=== PATIENT | male | born 1970 | race Caucasian/White ===

== ENCOUNTER 2024-07-31 13:19 | Outpatient (REF) | payer MEDICAID, SELFPAY ==
[2024-07-31 14:40] LABS: MANUAL DIFF FLAG NO
[2024-07-31 14:50] LABS: Basophils Absolute Auto 0.1 X10*3/uL (0.0-0.2); Basophils Percent Auto 0.9 % (0-2); Eosinophils Absolute Auto 0.3 X10*3/uL (0.0-0.4); Eosinophils Percent Auto 3.7 % (0-4); Hematocrit 48.5 % (42.0-52.0); Hemoglobin 17.1 g/dl (14.0-18.0); Imm Gran Abs Auto 0.02 X10*3/uL (0.00-0.03); Imm Gran Pct Auto 0.3 % (0.0-0.4); Lymphocytes Absolute Auto 1.4 X10*3/uL (1.2-4.9); Lymphocytes Percent Auto 20.2 % (20-40); Mean Corpuscular HGB Conc 35.3 g/dl (31.0-36.0); Mean Corpuscular Hemoglobin 30.1 pg (27.0-33.0); Mean Corpuscular Volume 85.4 fL (80.0-98.0); Mean Platelet Volume 11.5 fL (9.4-12.4); Monocytes Absolute Auto 0.6 X10*3/uL (0.1-1.2); Monocytes Percent Auto 8.2 % (2-11); Neutrophils Absolute Auto 4.7 x10*3/uL (2.0-8.3); Neutrophils Percent Auto 66.7 % (45-73); Platelet Count 214 X10*3/uL (160-400); Red Blood Count 5.68 X10*6/uL (4.60-5.80)
[2024-07-31 15:26] LABS: Creatinine Urine 129.37 mg/dL; Microalbum/Creatinine Ratio Ur 26.2 ug/mg cr (<30)
[2024-07-31 18:27] LABS: Alanine Aminotransferase 54 U/L (0-40); Alkaline Phosphatase 67 U/L (39-117); Anion Gap 17 (12-20); Aspartate Amino Transferase 35 U/L (5-37); Blood Urea Nitrogen 15 mg/dL (9-16); Calcium 10.1 mg/dL (8.4-10.2); Carbon Dioxide 20 mmol/L (22-29); Chloride 102 mmol/L (96-108); Cholesterol 146 mg/dL (<200); Estimated Glomerular Filt Rate > 60; Glucose Random 84 mg/dL (60-115); HDL Cholesterol 35 mg/dL (>40); LDL Cholesterol Calculated 71 mg/dL (<100); Potassium 3.9 mmol/L (3.3-5.1); Sodium 135 mmol/L (135-145); Total Protein 7.6 g/dL (6.5-8.0); Triglycerides 203 mg/dL (<150)
[2024-07-31 18:43] LABS: TSH reflex Free T4 3.54 uIU/mL (0.32-4.0)
[2024-08-01 11:09] LABS: ~HepC Num1 0.07 S/CO (0.00-0.79); ~Hepatitis C Antibody Nonreactive (Nonreactive)
== END 2024-07-31 13:20 | disposition home or self-care (01) ==
LOC: HO.CHCLDS 13:19
PROVIDERS: Visit Provider Internal Medicine
DX: E11.9 Type 2 diabetes mellitus without complications (principal); Z79.4 Long term (current) use of insulin; E78.00 Pure hypercholesterolemia, unspecified
CPT/HCPCS: 36415; 80053; 80061; 82043; 82570; 84443; 85025; 86803

== ENCOUNTER 2024-09-05 09:43 | Outpatient (REF) | payer OTHER, SELFPAY ==
--- NOTE | ~2024-09-05 | US_ITS ---
EXAMINATION: US ABDOMEN COMPLETE CLINICAL INFORMATION: Transaminitis. COMPARISON: Ultrasound abdomen 12/12/2019 and 08/30/2018. TECHNIQUE: Real-time imaging of the abdominal viscera. Technically limited study secondary to bowel gas and body habitus. FINDINGS: PANCREAS: The visualized portions of the pancreas are unremarkable but a large portion of the gland is obscured by bowel gas. ABDOMINAL AORTA: No aneurysm although the mid aorta is not seen, obscured by bowel gas. INFERIOR VENA CAVA: Visualized portions are normal. LIVER: The liver is enlarged measuring at least 22 cm in greatest length. The liver contour is normal. There is diffuse increased liver parenchymal echogenicity, consistent with hepatic steatosis. No focal hepatic lesion. There is no intrahepatic biliary duct dilatation seen. GALLBLADDER: Normal. The gallbladder is physiologically distended without evidence of stones, sludge, polyps, wall thickening or pericholecystic fluid. COMMON BILE DUCT: Normal in caliber measuring 0.5 cm in diameter. RIGHT KIDNEY: Normal. No hydronephrosis. No renal calculi or focal parenchymal lesions. The kidney measures 13.7 cm in maximum dimension. LEFT KIDNEY: No hydronephrosis. Again seen is an extrarenal pelvis versus a parapelvic benign cyst, in either case not a concerning finding. No follow up needed. No renal calculi or focal parenchymal lesions. The kidney measures 13.4 cm in maximum dimension. SPLEEN: The spleen is enlarged measuring 14.2 cm in maximum dimension. FREE FLUID: None. US/US abdomen complete IMPRESSION: Enlarged fatty liver with associated splenomegaly. Electronically signed by: Serge Cerrato MD 10/31/2024 01:40 PM [facility]
== END 2024-09-05 09:44 | disposition home or self-care (01) ==
LOC: HO.HMGCX 09:43
PROVIDERS: PCP Internal Medicine; Visit Provider Internal Medicine
DX: R74.01 Elevation of levels of liver transaminase levels (principal)
CPT/HCPCS: 76700

== ENCOUNTER 2025-04-08 13:29 | Outpatient (REF) | payer OTHER, SELFPAY ==
--- NOTE | ~2025-04-08 | US_ITS ---
EXAMINATION: US ABDOMEN COMPLETE WITH LIVER ELASTOGRAPHY HISTORY: Fatty liver w/ splenomegaly. TECHNIQUE: Real-time grayscale ultrasound imaging of the abdomen was performed and images were reviewed. COMPARISON: Comparison is made with the prior examination dated 09/05/2024. FINDINGS: Liver: The right lobe of the liver measures 20.1 cm in size. The left lobe of the liver is suboptimally visualized and difficult to measure. The liver demonstrates increased echotexture, consistent with steatosis. No focal mass or intrahepatic biliary ductal dilatation is identified. There is normal hepatopedal flow in the portal vein. Ultrasound elastography of the liver was performed with 10 separate measurements of the liver parenchyma with the patient in the supine position. Measurements were obtained approximately 2 cm below Roosevelt's capsule and perpendicular to the capsule. Images are of satisfactory quality. The median shear wave velocity is 1.91 m/s. The interquartile range/median (IQR/median) is 0.10. Gallbladder and biliary tree: The gallbladder is unremarkable, without evidence of calculi, wall thickening, or pericholecystic fluid. There is no sonographic Fuentes sign. The common bile duct is normal in caliber measuring 3 mm. Kidneys: The right kidney measures 13.7 cm in length. The left kidney measures 13.0 cm in length. The kidneys are unremarkable, without evidence of masses, hydronephrosis, or calculi. Pancreas: The pancreas is largely obscured by bowel gas. Spleen: The spleen is normal in size and contour, measuring 14.0 cm in length. Abdominal aorta and inferior vena cava: The visualized portions of the abdominal aorta and inferior vena cava are normal in caliber. There is no free fluid in the abdomen. US/US abdomen comp w elastography IMPRESSION: Hepatosplenomegaly and hepatic steatosis. The median shear wave velocity in the liver is 1.91 m/s, corresponding to a median liver stiffness of 11.5 kPa. The IQR/median value is 0.10. This is indicative of a quality data set. Findings are indicative of a high elastography value suggestive of compensated advanced chronic liver disease. REFERENCE: Society of Radiologists in Ultrasound Liver Stiffness Thresholds (2020): LIVER STIFFNESS THRESHOLDS: *Shear wave velocity less than 1.3 m/s (Liver Stiffness equal or less than 5 kPa): High probability of being normal. *Shear wave velocity less than 1.7 m/s (Liver Stiffness less than 9 kPa): In the absence of other known clinical signs, rules out compensated advanced chronic liver disease. *Shear wave velocity between 1.7-2.1 m/s (Liver Stiffness 9-13 kPa): Suggestive of compensated advanced chronic liver disease but need further test for confirmation. *Shear wave velocity between 2.1-2.4 m/s (Liver Stiffness 13-17 kPa): Rules in compensated advanced chronic liver disease. *Shear wave velocity greater than 2.4 m/s (Liver Stiffness over 17 kPa): Suggestive of clinically significant portal hypertension. QUALITY OF DATA SET: *IQR/Median value equal or less than 0.15 implies a quality data set. *IQR/Median value over 0.15 implies a poor quality data set. SIGNIFICANT CHANGE FROM PRIOR EXAM: Significant change if liver stiffness measurement is 10% or greater from prior exam. OTHER CONSIDERATIONS: The stage of liver fibrosis may be overestimated in the setting of acute hepatitis, liver inflammation, elevated liver function tests, hepatic vascular congestion, obstructive cholestasis, non-fasting state, and infiltrative diseases such as amyloidosis and lymphoma. In some patients with NAFLD, the liver stiffness thresholds for compensated advanced chronic liver disease may be lower. In causes other than viral hepatitis and NAFLD, liver stiffness thresholds are not well established. Electronically signed by: Hakan Hernandes MD 04/08/2025 02:37 PM EDT
--- OUTSIDE RECORDS SUMMARY | 2025-04-08 13:36 | XMS_ITS | Encounter Summary ---
Author Organization [employer] Address [address] [place] [address] 7 [place] [address] Care Team Providers Care Hospital Staff Pharmacist Name Role Phone Eli Roca MD Primary Care Provider Henrry Connor PharmD Unavailable Unavail able Encounter Details Date Type Department Care Team (Late Contact Info) Description 11/02/2024 Orders Only [facility] MED & PEDS [address] [place] [address] Eli Roca MD [address] [place] [address] Social History Tobacco Use Types Packs/Day Years Used Date Smoking Tobacco: Never Smokeless Tobacco: Never Depression Answer Date Recorded Patient Health Questionnaire-9 Score 0 07/10/2024 Patient Health Questionnaire-9 Score 0 07/10/2024 Last PHQ-9: Questionnaire Data Not on file 0 07/10/2024 Depression Answer Date Recorded Patient Health Questionnaire-2 Score 0 07/10/2024 Sex and Gender Information Value Date Recorded Sex Assigned at Male 09/25/2022 10:20 AM EDT Legal Sex Male 10:20 AM EDT Gender Identity Male 09/25/2022 10:20 AM EDT Sexual Orientation Straight 07/11/2024 4: 21 PM EDT documented as of this encounter Plan of Treatment Upcoming Encounters Date Type Department Care Team (Late Contact Info) Description 05/08/2025 3:15 PM EDT Office Visit [facility] MED & PEDS [address] [place] [address] Eli Roca MD [address] [place] [address] documented as of this encounter Goals Goal Patient Goal Type Associated Problems Recent Progress Patient-Stated? Author Blood Pressure < 140/90 Blood Pressure 126/80(2024 3:47 PM EDT) No Henrry Connor, PharmEduardo Hemoglobin A1c < 7 Result Component 7.3( 3:25 PM EST) No Henrry Connor PharmD documented as of this encounter Visit Diagnoses Not on filedocumented in this encounter Additional Health Concerns Assessment Noted Time PHQ-9 Depression Total Score: 0 07/10/20 24 2:52 PM EDT documented as of this encounter Care Teams Hospital Staff Pharmacist Relationship Specialty Start Date End Date Eli Roca MD 505 [place] [address] PCP - General Internal Medicine 12/25/13 Henrry Connor PharmD 505 [facility] [place] [address] Pharmacist Internal Medicine 05/04/23 documented as of this encounter
--- OUTSIDE RECORDS SUMMARY | 2025-04-08 13:36 | XMS_ITS | Clinical Summary ---
Author Organization [employer] Address [address] [place] [address] Care Team Providers Care Car And Yard Supervisor Name Role Phone Eli Roca MD Primary Care Provider Henrry Connor PharmEduardo Unavailable Unavail able Allergies No known active allergies Medications ibuprofen 400 MG tablet TAKE 1 TABLET BY MOUTH EVERY 6 HOURS NEEDED 2 Active Lancets (OneTouch Delica Plus [id number]) misc CHECK BLOOD SUGARS 4 TIMES A DAY DAY 2 Active FREESTYLE LITE test stripIndications: Type 2 diabetes mellitus without complication, with long-term current use of insulin ([facility]) USE TO TEST 4 TIMES A DAY 100 strip 3 4 Active Alcohol Swabs (Alcohol Prep) 70 % padsIndications:T ype 2 diabetes mellitus without complication, with long-term current use of insulin ([facility]) Use to check blood sugar/apply fatemeh up to TID 100 each 5 Active empagliflozin (Jardiance) 10 MGIndications:Typ e 2 diabetes mellitus with hyperglycemia, with long-term current use of insulin ([facility]) Take 1 tablet (10 mg) by mouth in the morning. 90 tablet 3 5 Active atorvastatin (Lipitor) 10 MG tabletIndications :Hypercholesterol emia Take 1 tablet (10 mg) by mouth in the morning. 90 tablet 3 5 Active insulin pen needle (B-D ULTRAFINE III SHORT PEN) 31G X 8 mm miscIndications:T ype 2 diabetes mellitus without complication, with long-term current use of insulin ([facility]) Use as instructed 120 each 5 Active Continuous Glucose Speedboat Driver (FreeStyle Fatemeh 2 Cranks) deviceIndications :Type 2 diabetes mellitus without complication, with long-term current use of insulin ([facility]) Use to check blood sugar at least every 8 hours 1 each 5 Active Continuous Glucose Sensor (FreeStyle Fatemeh 2 Sensor) miscIndications:T ype 2 diabetes mellitus without complication, with long-term current use of insulin ([facility]) Use to check blood sugar at least every 8 hours 2 each 5 Active empagliflozin (Jardiance) 25 MGIndications:Typ e 2 diabetes mellitus without complication, with long-term current use of insulin ([facility]) Take 1 tablet (25 mg) by mouth Once per day. 30 tablet 5 12/19/19 26 Active amLODIPine (Norvasc) 10 MG tabletIndications :Essential hypertension Take 1 tablet (10 mg) by mouth Once per day. 90 tablet 5 Active allopurinol (Zyloprim) 100 MG tablet Take 1 tablet (100 mg) by mouth Once per day. 90 tablet 5 Active insulin glargine (Lantus SoloStar) 100 UNIT/ML pen Inject 62 Units under the skin at bedtime. 15 mL 5 Active levothyroxine (Synthroid, Levoxyl) 50 MCG tablet Take 1 tablet (50 mcg) by mouth Once per day. 90 tablet 5 Active lisinopril 40 MG tablet Take 1 tablet (40 mg) by mouth Once per day. 90 tablet 5 Active metFORMIN (Glucophage) 1000 MG tablet Take 1 tablet (1,000 mg) by mouth 2 times daily. 180 tablet 5 Active Multiple Vitamin (One-Daily Multi-Vitamin) tablet Take 1 tablet by mouth 2 times daily. 180 tablet 5 Active glipiZIDE (Glucotrol) 5 MG tablet TAKE 0-1 TABLETS BY MOUTH BEFORE BREAKFAST AND 1 TO 3 TABLETS BEFORE SUPPER 450 tablet 5 Active Active Problems Problem Noted Date Diagnosed Date Varicocele 03/18/2018 Acquired hypothyroidism 02/19/2012 Diabetes mellitus 02/19/2012 Essential hypertension 02/19/2012 Pure hypercholesterolemia 02/19/2012 Tinea pedis 02/19/2012 Encounters Date Type Department Care Team Description 02/06/2025 Population Health Risk Score Community [facility] () Department [address] [phone] Provider, Population Health Generic 02/04/2025 4:00 PM EDT Office Visit [facility] MED & PEDS [address] [place] [address] Eli Roca MD Essential hypertension (Primary Dx); Type 2 diabetes mellitus without complication, with long-term current use of insulin (CMS/HCC); Acquired hypothyroidism; Fatty liver 02/04/2025 Travel 01/28/2025 Travel from Last 3 Months Immunizations Immunization Administration Dates Next Due Hep B, adult 01/21/2014,09/17/2013,08/20/2013 Influenza injectable quadriv alent IIV4 with preservative 09/20/2016,10/14/2015 Influenza, IIV3, injectable 08/11/2014 Influenza, Split (incl. nile fied surface antigen) 09/17/2013,12/06/2012 Pneumococcal Polysaccharide PPSV23 04/28/2010 TD (adult), 2 Lf tetanus tox oid, preservative free, adsorbed 08/09/2017 Tdap 08/11/2014 Social History Tobacco Use Types Packs/Day Years Used Date Smoking Tobacco: Never Smokeless Tobacco: Never Tobacco Cessation:Counseling Given: No Depression Answer Date Recorded Patient Health Questionnaire-9 Score 0 02/04/2025 Patient Health Questionnaire-9 Score 0 02/04/2025 Last PHQ-9: Questionnaire Data Not on file 0 02/04/2025 Housing Stability Answer Date Recorded What is your housing situation today? I have lisa sing 02/04/[address] you li ve. Do you have problems with any of the following? None of the above 02/04/2025 Food Insecurity Answer Date Recorded Within the past 12 months, y ou worried that your food would run out before you got money to buy more: Never True 02/04/2025 Within the past 12 months,th e food you bought just didn't last and you didn't have enough money to get more: Never True 10/2025 Transportation Answer Date Recorded In the past 12 months, has l ack of transportation kept you from medical appts, meetings, work or from getting things needed for daily living? No 02/04/2025 Utilities Answer Date Recorded In the past 12 months, has t he electric, gas, oil or water company threatened to shut off services in your home? No 02/04/2025 Depression Answer Date Recorded Patient Health Questionnaire-2 Score 0 02/04/2025 Internet Access Answer Date Recorded Internet Access Q1 Yes 02/04/2025 Internet Access Q2 Not on file 02/04/2025 Sex and Gender Information Value Date Recorded Sex Assigned at Male 09/25/2022 10:20 AM EDT Legal Sex Male 10:20 AM EDT Gender Identity Male 09/25/2022 10:20 AM EDT Sexual Orientation Straight 07/11/2024 4: 21 PM EDT Last Filed Vital Signs Vital Sign Reading Time Taken Comments Blood Pressure 126/80 02/04/2025 3:47 PM EDT Pulse 88 02/04/2025 3:47 PM EDT Temperature 36.6 ??C (97.8 ??F) 02/04/2025 3:47 PM ED T Respiratory Rate 20 02/04/2025 3:47 PM EDT Oxygen Saturation 98% 02/04/2025 3:47 PM EDT Inhaled Oxygen Concentration - - Weight 110 kg (243 lb 6.4 oz) 02/04/2025 3:47 PM EDT Height 176 cm (5' 9.29 ) 02/04/2025 3:47 PM EDT Body Mass Index 35.64 02/04/2025 3:47 PM EDT Plan of Treatment Upcoming Encounters Date Type Department Care Team (Late st Contact Info) Description 05/08/2025 3:15 PM EDT Office Visit [facility] MED & PEDS [address] [place] [address] Eli Roca MD [address] [place] [address] Health Maintenance Due Date Last Done Comments CT Colonography 1971 Colonoscopy 1971 Colorectal Cancer Screening 1971 FIT DNA/Cologuard 1971 FIT 1971 FOBT 1971 Sigmoidoscopy 1971 Hepatitis A Vaccines (1 of 2 - Risk 2-dose series) 1990 Zoster Vaccines (1 of 2) 2021 COVID-19 Vaccine ( - season) 2024 Influenza Vaccine (#1) 2024 6, 10/14/2015, 08/11/2014, Additional history exists Diabetes: Hemoglobin A1C 01/14/2025 024, 07/10/2024, 05/04/2023, Additional history exists Eye Exam 03/06/2025 Diabetes: Foot Exam 07/10/2025 07/10/2024, 07/10/2024, 07/10/2024, Additional history exists Diabetes: Urine Protein Screening 07/31/2025 07/31/2024, 03/03/2022, 10/28/2020, Additional history exists Lipid Panel 07/31/2025 07/31/2024, 06/0 07/2023, 03/03/2022, Additional history exists Tobacco Screening 10/14/2025 10/14/2024 Alcohol/Substance Use Screening 02/04/2026 02/04/2025 Depression Screening 02/04/2026 02/04/2025, 02/05/20 25 Pneumococcal Vaccine: 50+ Years (2 of 2 - PCV) 02/04/2026 04/28/2010 Postponed from 04/28/2011 (Patient Refused) SDOH Screening 02/04/2026 02/04/2025 DTaP/Tdap/Td Vaccines (3 - Td or Tdap) 08/09/2027 08/09/2017, 08/11/2014 RSV Patients and Patients Aged 60 years or older (1 - 1-dose 75+ series) 2046 Hepatitis B Vaccines Completed 01/21/2014, 09/17/2013, 08/20/2013 Hepatitis C Screening Completed 07/31/2024 HIB Vaccines Aged Out No longer eligi ble based on patient's age to complete this topic HIV Screening Discontinued HPV Vaccines Aged Out No longer eligi ble based on patient's age to complete this topic IPV Vaccines Aged Out No longer eligi ble based on patient's age to complete this topic Meningococcal Vaccine Aged Out No debbie carmen eligible based on patient's age to complete this topic RSV under 20 months Aged Out No longe r eligible based on patient's age to complete this topic Rotavirus Vaccines Aged Out No longer eligible based on patient's age to complete this topic Goals Goal Patient Goal Type Associated Problems Recent Progress Patient-Stated? Author Blood Pressure < 140/90 Blood Pressure 126/80(2024 3:47 PM EDT) No Henrry Connor, Bailey Hemoglobin A1c < 7 Result Component 7.3( 3:25 PM EST) No Henrry Connor PharmD Procedures Procedure Name Priority Date/Time Associated Diagnosis Comments POCT GLYCATED HEMOGLOBIN, TOTAL Routine 10/14/2024 3:25 PM EST Type 2 diabetes mellitus without complication, with long-term current use of insulin (CMS/HCC) ALBUMIN, RANDOM URINE W/CREATININE Routine 07/31/2024 1:30 PM EDT Type 2 diabetes mellitus without complication, with long-term current use of insulin (CMS/HCC) HEPATITIS C AB W/REFL TO HCV RNA, QN, PCR Routine 07/31/2024 1:21 PM EDT Type 2 diabetes mellitus without complication, with long-term current use of insulin ([facility]) LIPID PANEL, STANDARD Routine 07/31/2024 1:21 PM EDT Type 2 diabetes mellitus without complication, with long-term current use of insulin ([facility]) Pure hypercholesterolemia from Last 3 Months or Most Recently Relevant to Health Maintenance Results * (ABNORMAL) POCT A1C (10/14/2024 3:25 PM EST) Hemoglobin A1C 7.3(A) 4.0 - 6.0 % QC Media Lot # Comment:[id number] Lot# Expiration Date Comment:06/26/2026 Blood 10/14/2024 3:25 PM EST us Eli Roca MD POINT OF CARE TEST ENTER/ED IT ORDERABLES Final Result * Albumin, Random Urine W/Creatinine (07/31/2024 1:30 PM EDT) Creatinine, Urine 129.37 mg/dL [facility] Microalbumin Urine 34.0 mg/L [facility] Microalbum Creatinine Ratio Ur 26.2 <30 ug/mg cr [facility] Comment:Albumin/Creatinine R atio Reference Ranges: Normal: < 30 ug/mg creatinine Microalbuminuria: 30 - 300 ug/mg creatinineClinical Albuminuria: > 300 ug/mg creatinine Urine (Urine, Random) 07/31/2024 1:30 PM EDT 07/31/2024 2:38 PM EDT us Eli Roca MD LAB URINE ORDERABLES Final Result Performing Organization Address [facility] Co de Phone Number [facility] [address] [place] [phone] * Hepatitis C Antibody with Reflex to HCV, RNA, Quantitative, Real-Time PCR (07/31/2024 1:21 PM EDT) Hepatitis C Antibody Nonreactive Nonreactive [facility] Comment:Antibodies to HCV no t detected; does not exclude early acuteHCV infection. Blood Venous blood specimen / Unknown 07/31/2024 1:21 PM EDT 07/31/2024 5:45 PM EDT us Eli Roca MD LAB BLOOD ORDERABLES Final Result Performing Organization Address [facility]/ZIP Co de Phone Number [facility] [address] [place] [phone] * (ABNORMAL) Lipid Panel, Standard (07/31/2024 1:21 PM EDT) Triglycerides 203(H) <150 mg/dL [facility] Comment:Desirable Triglyceri de: less than 150 mg/dLBorderline High Triglyceride 150-199 mg/dLHigh Triglyceride: 200-499 mg/dLVery High Triglyceride: greater than or equal to 5OO mg/dL Cholesterol 146 <200 mg/dL [facility] Comment:Desirable Cholestero l: less than 200 mg/dLBorderline High Cholesterol: 200-239 mg/dLHigh Cholesterol: greater than 239 mg/dL LDL Cholesterol Calculated 71 <100 mg/dL [facility] Comment:Desirable LDL: less than 100 mg/dLNear Optimal/Above Optimal LDL: 110- 129 mg/dLBorderline High LDL: 130-159 mg/dLHigh LDL: 160-189 mg/dLVery High LDL: greater than or equal to 190 mg/dL HDL Cholesterol 35(L) >40 mg/dL [facility] Comment:Desirable HDL: great er than 40 mg/dL Note: This HDL assay may give artificially low results in patients with liver disease. Blood Venous blood specimen / Unknown 07/31/2024 1:21 PM EDT 07/31/2024 5:45 PM EDT Eli Roca MD LAB BLOOD ORDERABLES Final Result [facility] [address] [place] [address] [phone] from Last 3 Months or Most Recently Relevant to Health Maintenance Insurance [facility] C[facility] Care Teams Car And Yard Supervisor Relationship Specialty Start Date End Date Eli Roca MD [address] [place] [address] PCP - General Internal Medicine 12/25/13 Henrry Connor PharmD 505 [place] [address] Pharmacist Internal Medicine 05/04/23
--- OUTSIDE RECORDS SUMMARY | 2025-04-08 13:36 | XMS_ITS | Encounter Summary ---
Author Organization [employer] Address [address] [place] [address] 7 [place] [address] Care Team Providers Care Facsimile Operator Name Role Phone Eli Roca MD Primary Care Provider Henrry Connor PharmD Unavailable Unavail able Reason for Visit * Reason Comments Med Refill Encounter Details Date Type Department Care Team ([facility] Contact Info) Description 12/20/2022 Refill [facility] MED & PEDS [address] [place] [address] Eli Roca MD [address] [place] [address] Type 2 diabetes mellitus with hyperglycemia, with long-term current use of insulin ([facility]) (Primary Dx) Social History Tobacco Use Types Packs/Day Years Used Date Smoking Tobacco: Never Assessed Sex and Gender Information Value Date Recorded Sex Assigned at Male 09/25/2022 10:20 AM EDT Legal Sex Male 10:20 AM EDT Gender Identity Male 09/25/2022 10:20 AM EDT Sexual Orientation Straight 07/11/2024 4: 21 PM EDT documented as of this encounter Plan of Treatment Upcoming Encounters Date Type Department Care Team ([facility] Contact Info) Description 05/08/2025 3:15 PM EDT Office Visit [facility] & PEDS [address] [place] [address] Eli Roca MD [address] [place] [address] documented as of this encounter Visit Diagnoses Diagnosis Type 2 diabetes mellitus with hyperglycemia, with long-term current use of insulin ([facility])- Primary documented in this encounter Care Teams Facsimile Operator Relationship Specialty Start Date End Date Eli Roca MD 505 [facility] [place] [address] PCP - General Internal Medicine 12/25/13 Henrry Connor PharmD 505 [place] [address] Pharmacist Internal Medicine 05/04/23 documented as of this encounter
--- OUTSIDE RECORDS SUMMARY | 2025-04-08 13:36 | XMS_ITS | Encounter Summary ---
Author Organization [employer] Address [address] [place] [address] [address] [place] [address] Care Team Providers Care Java Development Manager Name Role Phone Eli Roca MD Primary Care Provider Henrry Connor PharmD Unavailable Unavail able Encounter Details Date Type Department Care Team (Late Contact Info) Description 05/08/2023 Orders Only [facility] MED & PEDS [address] [place] [address] Eli Roca MD [address] [place] [address] Social History Tobacco Use Types Packs/Day Years Used Date Smoking Tobacco: Never Assessed Sex and Gender Information Value Date Recorded Sex Assigned at Male 09/25/2022 10:20 AM EDT Legal Sex Male 10:20 AM EDT Gender Identity Male 09/25/2022 10:20 AM EDT Sexual Orientation Straight 07/11/2024 4: 21 PM EDT COVID-19 Exposure Response Date Recorded In the last 10 days, have yo u been in contact with someone who was confirmed or suspected to have Coronavirus/COVID-19? No / Unsure 05/11/2023 11:33 AM EDT documented as of this encounter Plan of Treatment Upcoming Encounters Date Type Department Care Team (Late Contact Info) Description 05/08/2025 3:15 PM EDT Office Visit [facility] MED & PEDS [address] [place] [address] Eli Roca MD [address] [place] [address] documented as of this encounter Goals Goal Patient Goal Type Associated Problems Recent Progress Patient-Stated? Author Blood Pressure < 140/90 Blood Pressure 126/80(2024 3:47 PM EDT) No Henrry Connor PharmD Hemoglobin A1c < 7 Result Component 7.3( 3:25 PM EST) No Henrry Connor PharmD documented as of this encounter Visit Diagnoses Not on filedocumented in this encounter Care Teams Java Development Manager Relationship Specialty Start Date End Date Eli Roca MD [address] [place] [address] PCP - General Internal Medicine 12/25/13 Henrry Connor PharmD [address] [place] [address] Pharmacist Internal Medicine 05/04/23 documented as of this encounter
--- OUTSIDE RECORDS SUMMARY | 2025-04-08 13:36 | XMS_ITS | Encounter Summary ---
Author Organization [employer] Address [address] [place] [address] 7 [place] [address] Care Team Providers Care Animal Care Specialist Name Role Phone Eli Roca MD Primary Care Provider Henrry Connor PharmD Unavailable Unavail able Reason for Visit * Reason Comments Med Refill Encounter Details Date Type Department Care Team ([facility] Contact Info) Description 07/11/2023 Refill [facility] MED & PEDS [address] [place] [address] Eli Roca MD [address] [place] [address] Social History Tobacco Use Types Packs/Day Years Used Date Smoking Tobacco: Never Smokeless Tobacco: Never Sex and Gender Information Value Date Recorded Sex Assigned at Male 09/25/2022 10:20 AM EDT Legal Sex Male 10:20 AM EDT Gender Identity Male 09/25/2022 10:20 AM EDT Sexual Orientation Straight 07/11/2024 4: 21 PM EDT documented as of this encounter Plan of Treatment Upcoming Encounters Date Type Department Care Team ([facility] Contact Info) Description 05/08/2025 3:15 PM EDT Office Visit [facility] MED & PEDS [address] [place] [address] Eli Roca MD [address] [place] [address] documented as of this encounter Goals Goal Patient Goal Type Associated Problems Recent Progress Patient-Stated? Author Blood Pressure < 140/90 Blood Pressure 126/80(2024 3:47 PM EDT) No Henrry Connor, PharmD Hemoglobin A1c < 7 Result Component 7.3( 3:25 PM EST) No Henrry Connor PharmEduardo documented as of this encounter Visit Diagnoses Not on filedocumented in this encounter Care Teams Animal Care Specialist Relationship Specialty Start Date End Date Eli Roca MD [address] [place], [place] [phone] PCP - General Internal Medicine 12/25/13 Henrry Connor, PharmD [address] [place] [address] Pharmacist Internal Medicine 05/04/23 documented as of this encounter
--- OUTSIDE RECORDS SUMMARY | 2025-04-08 13:36 | XMS_ITS | Encounter Summary ---
Author Organization [employer] Address [address] [place] [address] 7 [place] [address] Care Team Providers Care Manager Strategic Partnerships Name Role Phone Eli Roca MD Primary Care Provider Henrry Connor PharmD Unavailable Unavail able Encounter Details Date Type Department Care Team (Late Contact Info) Description 12/14/2022 Orders Only [facility] [address] [place] [address] Nohemy Frazier LPN Social History Tobacco Use Types Packs/Day Years [...] Description 05/08/2025 3:15 PM EDT Office Visit [facility] [address] [place] [address] Eli Roca MD [address] [place] [address] documented as of this encounter Visit Diagnoses Not on filedocumented in this encounter Care Teams Manager Strategic Partnerships Relationship Specialty Start Date End Date Eli Roca MD [address] [place] [address] PCP - General Internal Medicine 12/25/13 Henrry Connor, PharmD [address] [place] [address] Pharmacist Internal Medicine 05/04/23 documented as of this encounter
--- OUTSIDE RECORDS SUMMARY | 2025-04-08 13:36 | XMS_ITS | Encounter Summary ---
Author Organization [employer] Address [address] [place] [address] 7 [place] [address] Care Team Providers Care Auto Body Estimator Name Role Phone Eli Roca MD Primary Care Provider Henrry Connor PharmD Unavailable Unavail able Reason for Visit * Reason Comments Med Refill Encounter Details Date Type Department Care Team ([facility] Contact Info) Description 12/09/2022 Refill [facility] [address] [place] [address] Eli Roca MD [address] [place] [address] Type 2 diabetes mellitus without complication, with long-term current use of insulin ([facility]) (Primary Dx) Social History Tobacco Use [...] Upcoming Encounters Date Type Department Care Team ([facility] Contact Info) Description 05/08/2025 3:15 PM EDT Office Visit [facility] [address] [place] [address] Eli Roca MD [address] [place] [address] documented as of this encounter Visit Diagnoses Diagnosis Type 2 diabetes mellitus without complication, with long-term current use of insulin ([facility])- Primary documented in this encounter Care Teams Auto Body Estimator Relationship Specialty Start Date End Date Eli Roca MD 505 [facility] [place] [address] PCP - General Internal Medicine 12/25/13 Henrry Connor PharmD [address] [facility] [place] [address] Pharmacist Internal Medicine 05/04/23 documented as of this encounter
--- OUTSIDE RECORDS SUMMARY | 2025-04-08 13:37 | XMS_ITS | Encounter Summary ---
Author Organization [employer] Address [address] [place] [address] 7 [place] [address] Care Team Providers Care Passenger Brakeman Name Role Phone Eli Roca MD Primary Care Provider [phone] Henrry Connor PharmD Unavailable Unavail able Reason for Referral * Imaging (Routine) - Closed Specialty Diagnoses / Procedures Referred By Juan stevens Referred To Contact Radiology Diagnoses Transaminitis Procedures US Abdomen Complete Eli Roca MD [address] [place] [address] Phone: tel: fax: [address] Phone: tel: fax: Referral ID Status Reason Start Date Expiration Date Visits Re quested Visits Authorized [id number] Closed 08/01/2024 08/01/2025 1 1 Encounter Details Date Type Department Care Team (Late st Contact Info) Description 08/01/2024 Orders Only [facility] [address] [place] [address] Eli Roca MD [address] [place] [address] Transaminitis (Primary Dx) Social History Tobacco Use Types [...] Description 05/08/2025 3:15 PM EDT Office Visit [facility] [address] [place] [address] Eli Roca MD [address] [place] [address] Scheduled Orders Name Type Priority Associated Diagnoses Orde r Schedule Hepatitis A,B,C Profile Lab Routine Transaminitis Expected: 08/01/2024, Expires: 08/01/2025 documented as of this encounter Goals Goal Patient Goal Type Associated Problems Recent Progress Patient-Stated? Author Blood Pressure < 140/90 Blood Pressure 126/80(2024 3:47 PM EDT) No Henrry Connor, PharmD Hemoglobin A1c < 7 Result Component 7.3( 3:25 PM EST) No Henrry Connor, PharmD documented as of this encounter Procedures Procedure Name Priority Date/Time Associated Diagnosis Comments US ABDOMEN COMPLETE Routine 09/05/2024 9 :54 AM EDT Transaminitis documented in this encounter Results * US Abdomen Complete (09/05/2024 9:54 AM EDT) Anatomical Region Laterality Modality Abdomen Ultrasound 09/05/2024 9:54 AM EDT Narrative 10/31/2024 1:43 PM EST ? [facility] ?[address] ? [place] [address] ? Ultrasound Report ? Signed ? Patient: Margie,Sb ?MR#: [id number] ?? 8 ? : 1970 ?Acct:[id number] ? Age/Sex: 54 / M ?ADM Date: 10/11/24 ? Loc: HO.HMGCX ? Attending Dr: Eli Roca MD ? Ordering Physician: Eli Roca MD ?? Date of Service: 09/05/24 ?? Procedure(s): US abdomen complete ?? Accession Number(s): [id number] ? cc: Eli Roca MD ? EXAMINATION: ?? US ABDOMEN COMPLETE ? CLINICAL INFORMATION: ?? Transaminitis. ? COMPARISON: ?? Ultrasound abdomen 12/12/2019 and 08/30/2018. ? TECHNIQUE: ?? Real-time imaging of the abdominal viscera. Technically limited study ?? secondary to bowel gas and body habitus. ? FINDINGS: ? PANCREAS: The visualized portions of the pancreas are unremarkable but ?? a large portion of the gland is obscured by bowel gas. ? ABDOMINAL AORTA: No aneurysm although the mid aorta is not seen, ?? obscured by bowel gas. ? INFERIOR VENA CAVA: Visualized portions are normal. ? LIVER: The liver is enlarged measuring at least 22 cm in greatest ?? length. The liver contour is normal. There is diffuse increased liver ?? parenchymal echogenicity, consistent with hepatic steatosis. ??No focal ?? hepatic lesion. There is no intrahepatic biliary duct dilatation seen. ? GALLBLADDER: Normal. The gallbladder is physiologically distended ?? without evidence of stones, sludge, polyps, wall thickening or ?? pericholecystic fluid. ? COMMON BILE DUCT: Normal in caliber measuring 0.5 cm in diameter. ? RIGHT KIDNEY: Normal. No hydronephrosis. No renal calculi or focal ?? parenchymal lesions. The kidney measures 13.7 cm in maximum dimension. ? LEFT KIDNEY: No hydronephrosis. Again seen is an extrarenal pelvis ?? versus a parapelvic benign cyst, in either case not a concerning ?? finding. No follow up needed. No renal calculi or focal parenchymal ?? lesions. The kidney measures 13.4 cm in maximum dimension. ? SPLEEN: The spleen is enlarged measuring 14.2 cm in maximum dimension. ? FREE FLUID: None. ? US/US abdomen complete ?? IMPRESSION: ?? Enlarged fatty liver with associated splenomegaly. ? Electronically signed by: ??Serge Cerrato MD ??10/31/2024 01:40 PM EST ?? RP ? Dictated By: ?Serge Cerrato MD ? Signed By: ?<Electronically signed by Serge Cerrato MD in OV> ? 10/31/24 1340 ? DD/ 0954 ? TD/TT: 09/05/24 1014 ? Radiographer Technologist: SS ? Procedure Note Donotuseinterpreter, Image - 10/31/2024 [facility] [address] [place] [address] [place] [address] Ultrasound Report Signed Patient: Sb HansonMR#: [id number] 8 : 1970Acct:[id number] Age/Sex: 54 / MADM Date: 09/05/24 Loc: HO.HMGCX Attending Dr: Eli Roca MD Ordering Physician: Eli Roca MD Date of Service: 09/05/24 Procedure(s): US abdomen complete Accession Number(s): [id number] cc: Eli Roca MD EXAMINATION: US ABDOMEN COMPLETE CLINICAL INFORMATION: Transaminitis. COMPARISON: Ultrasound abdomen 12/12/2019 and 08/30/2018. TECHNIQUE: Real-time imaging of the abdominal viscera. Technically limited study secondary to bowel gas and body habitus. FINDINGS: PANCREAS: The visualized portions of the pancreas are unremarkable but a large portion of the gland is obscured by bowel gas. ABDOMINAL AORTA: No aneurysm although the mid aorta is not seen, obscured by bowel gas. INFERIOR VENA CAVA: Visualized portions are normal. LIVER: The liver is enlarged measuring at least 22 cm in greatest length. The liver contour is normal. There is diffuse increased liver parenchymal echogenicity, consistent with hepatic steatosis. No focal hepatic lesion. There is no intrahepatic biliary duct dilatation seen. GALLBLADDER: Normal. The gallbladder is physiologically distended without evidence of stones, sludge, polyps, wall thickening or pericholecystic fluid. COMMON BILE DUCT: Normal in caliber measuring 0.5 cm in diameter. RIGHT KIDNEY: Normal. No hydronephrosis. No renal calculi or focal parenchymal lesions. The kidney measures 13.7 cm in maximum dimension. LEFT KIDNEY: No hydronephrosis. Again seen is an extrarenal pelvis versus a parapelvic benign cyst, in either case not a concerning finding. No follow up needed. No renal calculi or focal parenchymal lesions. The kidney measures 13.4 cm in maximum dimension. SPLEEN: The spleen is enlarged measuring 14.2 cm in maximum dimension. FREE FLUID: None. US/US abdomen complete IMPRESSION: Enlarged fatty liver with associated splenomegaly. Electronically signed by: Serge Cerrato MD 10/31/2024 01:40 PM EST Dictated By: Serge Cerrato MD Signed By: <Electronically signed by Serge Cerrato MD in OV> 10/31/24 1340 DD/ 0954 TD/TT: 09/05/24 1014 Radiographer Technologist: FAUZIA us Eli Roca MD IMG US PROCEDURES Edited Re sult - Final documented in this encounter Visit Diagnoses Diagnosis Transaminitis- Primary Nonspecific elevation of levels of transaminase or lactic acid dehydrogenase (LDH) documented in this encounter Additional Health Concerns Assessment Noted Time PHQ-9 Depression Total Score: 0 07/10/20 24 2:52 PM EDT documented as of this encounter Care Teams Passenger Brakeman Relationship Specialty Start Date End Date Eli Roca MD 505 [facility] [place] [address] PCP - General Internal Medicine 12/25/13 Henrry Connor PharmD 505 [facility] [place] [address] Pharmacist Internal Medicine 05/04/23 documented as of this encounter
== END 2025-04-08 13:30 | disposition home or self-care (01) ==
LOC: HO.US 13:29
PROVIDERS: PCP Internal Medicine; Visit Provider Internal Medicine
DX: K76.0 Fatty (change of) liver, not elsewhere classified (principal)
CPT/HCPCS: 76700; 76981

== ENCOUNTER → 2025-04-08 13:31 | Outpatient (BNV) | payer OTHER, SELFPAY | PROVIDERS: PCP Internal Medicine; Visit Provider Radiology Diagnostic Radiology | DX: R16.2 Hepatomegaly with splenomegaly, not elsewhere classified (principal) | CPT/HCPCS: 76700; 76981 ==

== ENCOUNTER 2025-05-15 08:56 | Outpatient (REF) | payer OTHER, SELFPAY ==
--- OUTSIDE RECORDS SUMMARY | 2025-05-15 09:02 | XMS_ITS | Encounter Summary ---
Author Organization [employer] Address [address] [place] [address] [place] [address] Care Team Providers Care Waterproof Coating Machine Tender Name Role Phone Eli Roca MD Primary Care Provider [phone] Henrry Connor PharmD Unavailable Unavail able Reason for Visit * Reason Comments Med Refill Encounter Details Date Type Department Care Team ([facility] Contact Info) Description 07/11/2023 Refill [facility] [address] [place] [address] Eli Roca MD [address] [place] [address] Social History Tobacco Use Types Packs/Day Years [...] Upcoming Encounters Date Type Department Care Team ([facility] Contact Info) Description 08/03/2025 1:45 PM EDT Office Visit [facility] [address] [place] [address] Eli Roca MD [address] [place] [address] documented as of this encounter Goals Goal Patient Goal Type Associated Problems Recent Progress Patient-Stated? Author Blood Pressure < 140/90 Blood Pressure 121/79(06/13/ 2025 3:05 PM EDT) No Dellogono, Henrry, PharmD Hemoglobin A1c < 7 Result Component 7.9( 5 3:30 PM EDT) No Henrry Connor PharmD documented as of this encounter Visit Diagnoses Not on filedocumented in this encounter Care Teams Waterproof Coating Machine Tender Relationship Specialty Start Date End Date Eli Roca MD [address] [place], [place] [id number] PCP - General Internal Medicine 12/25/13 Henrry Connor, PharmD [address] [place] [address] Pharmacist Internal Medicine 05/04/23 documented as of this encounter
[2025-05-15 15:15] LABS: TSH reflex Free T4 3.97 uIU/mL (0.32-4.0)
[2025-05-16 09:03] LABS: HBS Num1 8.37 mIU/mL (0-7.99); HBc Num1 0.11 S/CO (0.00-0.79); HBsAGNum1 0.39 S/CO (0.00-0.99); Hepatitis A Antibody IgM 0.16 Index (0-0.79); Hepatitis B Core Antibody Nonreactive (Nonreactive); Hepatitis B Surface Antigen Negative (Negative); ~Hepatitis A Antibody IgM Nonreactive (Nonreactive); ~Hepatitis C Antibody Nonreactive (Nonreactive)
[2025-05-16 09:46] LABS: HBS Num2 8.18 mIU/mL (0-7.99)
[2025-05-16 09:47] LABS: HBS Num3 7.97 mIU/mL (0-7.99); ~Hepatitis B Surface Antibody GRAYZONE (Nonreactive)
== END 2025-05-15 08:57 | disposition home or self-care (01) ==
LOC: HO.CHCLDS 08:56
PROVIDERS: Visit Provider Internal Medicine
DX: R74.01 Elevation of levels of liver transaminase levels (principal); E03.9 Hypothyroidism, unspecified
CPT/HCPCS: 36415; 84443; 86704; 86706; 86709; 86803; 87340

== ENCOUNTER 2025-09-14 13:34 | Outpatient (REF) | payer OTHER, SELFPAY ==
--- OUTSIDE RECORDS SUMMARY | 2025-09-14 13:00 | XMS_ITS | Encounter Summary ---
Author Organization [employer] Address [address] [place] [address] 7 [place] [address] Care Team Providers Care Mangle Tender Name Role Phone Eli Roca MD Primary Care Provider +1- [phone] Henrry Connor PharmD Unavailable Unavail able Reason for Visit * Reason Comments Diabetes Hyperlipidemia Hypertension Hypothyroidism Weight monitoring Encounter Details Date Type Department Care Team ([facility] Contact Info) Description 09/14/2025 1:00 PM EDT Office Visit [facility] MED & PEDS [address] [place] [address] Eli Roca MD [address] [place] [address] Type 2 diabetes mellitus without complication, with long-term current use of insulin (HCC) (Primary Dx); Essential hypertension; Pure hypercholesterolemia; Acquired hypothyroidism; Screening for colon cancer; Toe web intertrigo Social History Tobacco Use Types Packs/Day Years Used Date Smoking Tobacco: Never Smokeless Tobacco: Never Depression Answer Date Recorded Patient Health Questionnaire-9 Score 0 02/04/2025 Patient Health Questionnaire-9 Score 0 02/04/2025 Last PHQ-9: Questionnaire Data Not on file 0 02/04/2025 Housing Stability Answer Date Recorded What is your housing situation today? I have lisa jonas 02/04/[address] you li [...] PM EDT documented as of this encounter Last Filed Vital Signs Vital Sign Reading Time Taken Comments Blood Pressure 116/74 09/14/2025 1:10 PM EDT Pulse - - Temperature - - Respiratory Rate 20 09/14/2025 1:10 PM EDT Oxygen Saturation 95% 09/14/2025 1:10 PM EDT Inhaled Oxygen Concentration - - Weight 108 kg (238 lb) 09/14/2025 1:10 PM EDT Height 176 cm (5' 9.29 ) 09/14/2025 1:10 PM EDT Body Mass Index 34.85 09/14/2025 1:10 PM EDT documented in this encounter Progress Notes * Eli Roca MD - 09/14/2025 1:00 PM EDT SUBJECTIVE Sb Hanson is a 55 y.o. male who presents for Diabetes, Hyperlipidemia, Hypertension, Hypothyroidism, and Weight monitoring. Diabetes Hyperlipidemia Pertinent negatives include no myalgias or shortness of breath. Hypertension Pertinent negatives include no shortness of breath. No reported acute events since the last office visit. History of diabetes. No reported episodes of hypoglycemia since the last office visit. Patient was started on Trulicity at the last visit to help him lose weight and to improve his diabetes control but he has not started the medication yet. Mr. Sb Hanson is due to get a repeat lipid panel. Did not do it before this visit. His weight has not changed. Has not started the prescribed Trulicity. Problem List[1] Allergies[2] Medications Ordered Prior to Encounter[3] Review of Systems Constitutional: Negative for appetite change, chills and diaphoresis. Eyes: Negative for photophobia, pain and redness. Respiratory: Negative for cough, choking and shortness of breath. Genitourinary: Negative for frequency, genital sores and hematuria. Musculoskeletal: Negative for gait problem, joint swelling and myalgias. OBJECTIVE Vitals: 09/14/25 1310 BP: 116/74 BP Location: Left arm Patient Position: Sitting BP Cuff Size: Adult long Resp: 20 SpO2: 95% Weight: 238 lb (108 kg) Height: 5' 9.29 (1.76 m) Physical Exam Constitutional: General: He is not in acute distress. Appearance: Normal appearance. He is obese. He is not ill-appearing, toxic- appearing or diaphoretic. Cardiovascular: Rate and Rhythm: Normal rate. Heart sounds: No murmur heard. No friction rub. Pulmonary: Effort: Pulmonary effort is normal. Abdominal: Palpations: Abdomen is soft. There is no mass. Skin: Comments: Maceration of the fourth toe webs bilaterally Neurological: General: No focal deficit present. Mental Status: He is alert. Psychiatric: Mood and Affect: Mood normal. Assessment/Plan Assessment/Plan Diagnoses and all orders for this visit: Type 2 diabetes mellitus without complication, with long-term current use of insulin (HCC) Comments: A1c in 2 months Start Trulicity as prescribed. Orders: - POCT Glucose - Albumin, Random Urine W/Creatinine; Future Essential hypertension Comments: Blood pressure is at goal No change DASH diet. Pure hypercholesterolemia Comments: Lipid panel today Patient will be contacted with results. Acquired hypothyroidism Comments: Repeat TSH Medication adjustment as needed. Orders: - TSH W/Reflex to FT4; Future Screening for colon cancer - Cologuard?? colon cancer screening; Future Toe web intertrigo Comments: Keep the area dry. Orders: - nystatin (Nystop) 888898 UNIT/GM powder; Apply topically 2 times daily. [employer] speech recognition die tester software was used to create portions of this document. An attempt at proofreading has been made to minimize errors. [1] Patient Active Problem List Diagnosis Acquired hypothyroidism Diabetes mellitus (HCC) Essential hypertension Pure hypercholesterolemia Tinea pedis Varicocele Mild anxiety [2] No Known Allergies [3] Current Outpatient Medications on File Prior to Visit Medication Sig Dispense Refill Alcohol Swabs (Alcohol Prep) 70 % pads Use to check blood sugar/apply fatemeh up to TID 100 each 11 allopurinol (Zyloprim) 100 MG tablet TAKE 1 TABLET BY MOUTH EVERY DAY 90 tablet 1 amLODIPine (Norvasc) 10 MG tablet Take 1 tablet (10 mg) by mouth Once per day. 90 tablet 1 atorvastatin (Lipitor) 10 MG tablet Take 1 tablet (10 mg) by mouth in the morning. 90 tablet 3 Continuous Glucose Card Lacer (FreeStyle Fatemeh 2 Lutsen) device Use to check blood sugar at least every 8 hours 1 each 0 Continuous Glucose Sensor (FreeStyle Fatemeh 2 Sensor) misc Use to check blood sugar at least every 8hours 2 each 11 Dulaglutide (Trulicity) 0.75 MG/0.5ML solution auto-injector Inject 0.75 mg under the skin 1 (one) time per week. 2 mL 2 empagliflozin (Jardiance) 25 MG Take 1 tablet (25 mg) by mouth Once per day. 30 tablet 11 FREESTYLE LITE test strip USE TO TEST 4 TIMES A DAY 100 strip 3 glipiZIDE (Glucotrol) 5 MG tablet TAKE 0-1 TABLETS BY MOUTH BEFORE BREAKFAST AND 1 TO 3 TABLETS BEFORE SUPPER 450 tablet 1 ibuprofen 400 MG tablet TAKE 1 TABLET BY MOUTH EVERY 6 HOURS NEEDED insulin glargine (Lantus SoloStar) 100 UNIT/ML pen INJECT 62 UNITS UNDER THE SKIN AT BEDTIME. 15 mL3 insulin pen needle (B-D ULTRAFINE III SHORT PEN) 31G X 8 mm misc Use as instructed 120 each 5 Lancets (Everimaging TechnologyTouch Delica Plus [id number]) misc CHECK BLOOD SUGARS 4 TIMES A DAY DAY levothyroxine (Synthroid, Levoxyl) 50 MCG tablet TAKE 1 TABLET BY MOUTH EVERY DAY 90 tablet 1 lisinopril 40 MG tablet Take 1 tablet (40 mg) by mouth Once per day. 90 tablet 3 metFORMIN (Glucophage) 1000 MG tablet TAKE 1 TABLET BY MOUTH TWICE A DAY 180 tablet 1 Multiple Vitamin (One-Daily Multi-Vitamin) tablet Take 1 tablet by mouth 2 times daily. 180 tablet 3 [DISCONTINUED] allopurinol (Zyloprim) 100 MG tablet Take 1 tablet (100 mg) by mouth Once per day. 90 tablet 1 No current facility-administered medications on file prior to visit. documented in this encounter Plan of Treatment Scheduled Orders Name Type Priority Associated Diagnoses Orde r Schedule Cologuard colon cancer screening Lab Routine Screening for colon cancer Expected: 09/14/2025 (Approximate), Expires: 09/14/2026 documented as of this encounter Goals Goal Patient Goal Type Associated Problems Recent Progress Patient-Stated? Author Blood Pressure < 140/90 Blood Pressure 116/74(2024 1:10 PM EDT) No Henrry Connor PharmD Hemoglobin A1c < 7 Result Component 7.7( 2:11 PM EDT) No Hnerry Connor PharmD documented as of this encounter Procedures Procedure Name Priority Date/Time Associated Diagnosis Comments ALBUMIN, RANDOM URINE W/CREATININE Routine 09/14/2025 1:40 PM EDT Type 2 diabetes mellitus without complication, with long-term current use of insulin (HCC) TSH W/REFLEX TO FT4 Routine 09/14/2025 1:35 PM EDT Acquired hypothyroidism POCT GLUCOSE Routine 09/14/2025 1:32 PM EDT Type 2 diabetes mellitus without complication, with long-term current use of insulin (HCC) documented in this encounter Results * Albumin, Random Urine W/Creatinine (09/14/2025 1:40 PM EDT) Creatinine, Urine 106.03 mg/dL [facility] Microalbumin Urine 22.0 mg/L [facility] Microalbum Creatinine Ratio Ur 20.7 <30 ug/mg cr [facility] Comment:Albumin/Creatinine R atio Reference Ranges: Normal: < 30 ug/mg creatinine Microalbuminuria: 30 - 300 ug/mg creatinineClinical Albuminuria: > 300 ug/mg creatinine Urine (Urine, Random) 09/14/2025 1:40 PM EDT 09/14/2025 2:32 PM EDT us Eli Roca MD LAB URINE ORDERABLES Final Result Performing Organization Address City/[facility]/ZIP Co de Phone Number [facility] [address] [place] [phone] [phone] * (ABNORMAL) TSH W/Reflex to FT4 (09/14/2025 1:35 PM EDT) TSH reflex Free T4 4.06(H) 0.32 - 4.0 uIU/mL [facility] Blood Venous blood specimen / Unknown 09/14/2025 1:35 PM EDT 09/14/2025 2:40 PM EDT us Eli Roca MD LAB BLOOD ORDERABLES Final Result Performing Organization Address [facility] Co de Phone Number [facility] [address] [place] [phone] * POCT Glucose (09/14/2025 1:32 PM EDT) Glucose Blood, POC 110 60 - 200 mg/dL QC Media Lot # [id number] Lot# Expiration Date Blood Capillary blood specimen / Unknown 09/14/2025 1:32 PM EDT us Eli Roca MD POINT OF CARE TEST ENTER/ED IT ORDERABLES Final Result documented in this encounter Visit Diagnoses Diagnosis Type 2 diabetes mellitus without complication, with long-term current use of insulin (HCC)- Primary Essential hypertension Unspecified essential hypertension Pure hypercholesterolemia Acquired hypothyroidism Unspecified hypothyroidism Screening for colon cancer Special screening for malignant neoplasms, colon Toe web intertrigo documented in this encounter Additional Health Concerns Assessment Noted Time PHQ-9 Depression Total Score: 0 02/05/20 25 3:48 PM EDT documented as of this encounter Care Teams Mangle Tender Relationship Specialty Start Date End Date Eli Roca MD [address] [place] [id number] PCP - General Internal Medicine 12/25/13 Henrry Connor, PharmD [address] [place] [address] Pharmacist Internal Medicine 05/04/23 documented as of this encounter
[2025-09-14 15:20] LABS: Cholesterol 141 mg/dL (<200); HDL Cholesterol 33 mg/dL (>40); Triglycerides 293 mg/dL (<150)
[2025-09-14 16:17] LABS: Microalbum/Creatinine Ratio Ur 20.7 ug/mg cr (<30)
--- OUTSIDE RECORDS SUMMARY | 2025-09-14 16:41 | XMS_ITS | Encounter Summary ---
Author Organization [employer] Address [address] [place] [address] 7 [place] [address] Care Team Providers Care Data Warehousing Manager Name Role Phone Eli Roca MD Primary Care Provider +1- [phone] Henrry Connor PharmD Unavailable Unavail able Reason for Visit * Reason Onset Date Comments Chart Prep 09/11/2025 Encounter Details Date Type Department Care Team ([facility] Contact Info) Description 09/11/2025 Telephone [facility] CHC MED & PEDS [address] [place] [address] Eli Roca MD [address] [place] [address] Chart Prep Social History Tobacco Use Types Packs/Day Years Used Date Smoking Tobacco: Never Smokeless Tobacco: Never Depression Answer Date Recorded Patient Health Questionnaire-9 Score 0 02/04/2025 Patient Health Questionnaire-9 Score 0 02/04/2025 Last PHQ-9: Questionnaire Data Not on file 0 02/04/2025 Housing Stability Answer Date Recorded What is your housing situation today? I have lisa mcdaniel 02/04/[address] you li [...] PM EDT documented as of this encounter Miscellaneous Notes * Telephone Encounter - Dang Tiwari [place] - 09/11/2025 1:27 PM EDT Chart Prep Labs: not done Images: done Referrals: complete Vaccines due: Covid, Flu, Hep A, and Zoster Screenings: colonoscopy, eye exam, and foot exam Overdue care gaps: Glucose, Oral health screening, and Tobacco documented in this encounter Plan of Treatment Not on file documented as of this encounter Goals Goal Patient Goal Type Associated Problems Recent Progress Patient-Stated? Author Blood Pressure < 140/90 Blood Pressure 116/74(2024 1:10 PM EDT) No Dellogono, Ehnrry, PharmD Hemoglobin A1c < 7 Result Component 7.7( 2:11 PM EDT) No Dellogono Henrry, PharmD documented as of this encounter Visit Diagnoses Not on filedocumented in this encounter Additional Health Concerns Assessment Noted Time PHQ-9 Depression Total Score: 0 02/05/20 25 3:48 PM EDT documented as of this encounter Care Teams Data Warehousing Manager Relationship Specialty Start Date End Date Eli Roca MD [address] [place] [address] PCP - General Internal Medicine 12/25/13 Dellogono, Henrry, PharmD [address] [place] [address] Pharmacist Internal Medicine 05/04/23 documented as of this encounter
--- OUTSIDE RECORDS SUMMARY | 2025-09-14 16:41 | XMS_ITS | Encounter Summary ---
Author Organization [employer] Address [address] [place] [address] [place] [address] Care Team Providers Care Fell Cutter Name Role Phone Eli Roca MD Primary Care Provider +1- [phone] Henrry Connor PharmD Unavailable Unavail able Reason for Visit * Reason Comments Med Refill Encounter Details Date Type Department Care Team ([facility] Contact Info) Description 07/11/2023 Refill [facility] CHC MED & PEDS [address] [place] [address] Eli Roca MD [address] [place] [address] Social History Tobacco Use Types Packs/Day Years Used Date Smoking Tobacco: Never Smokeless Tobacco: Never Sex and Gender Information Value Date Recorded Sex Assigned at Male 09/25/2022 10:20 AM EDT Legal Sex Male 10:20 AM EDT Gender Identity Male 09/25/2022 10:20 AM EDT Sexual Orientation Straight 07/11/2024 4: 21 PM EDT documented as of this encounter Plan of Treatment Not on file documented as of this encounter Goals Goal Patient Goal Type Associated Problems Recent Progress Patient-Stated? Author Blood Pressure < 140/90 Blood Pressure 116/74(2024 1:10 PM EDT) No Dellogono, Henrry, PharmD Hemoglobin A1c < 7 Result Component 7.7( 2:11 PM EDT) No Dellogono Henrry, PharmD documented as of this encounter Visit Diagnoses Not on filedocumented in this encounter Care Teams Fell Cutter Relationship Specialty Start Date End Date Eli Roca MD [address] [place] [address] PCP - General Internal Medicine 12/25/13 Henrry Connor, Bailey [address] [place] [address] Pharmacist Internal Medicine 05/04/23 documented as of this encounter
--- OUTSIDE RECORDS SUMMARY | 2025-09-14 16:41 | XMS_ITS | Encounter Summary ---
Author Organization [employer] Address [address] [place] [address] Care Team Providers Care Income Tax Adjuster Name Role Phone Eli Roca MD Primary Care Provider +1- [phone] Henrry Connor PharmD Unavailable Unavail able Encounter Details Date Type Department Care Team (Latest Contact Info) Description 09/14/2025 Travel Social History Tobacco Use Types Packs/Day Years [...] Pressure 116/74(2024 1:10 PM EDT) No Henrry Connor, PharmD Hemoglobin A1c < 7 Result Component 7.7( 2:11 PM EDT) No Henrry Connor, PharmD documented as of this encounter Visit Diagnoses Not on filedocumented in this encounter Additional Health Concerns Assessment Noted Time PHQ-9 Depression Total Score: 0 02/05/20 25 3:48 PM EDT documented as of this encounter Care Teams Income Tax Adjuster Relationship Specialty Start Date End Date Eli Roca MD [address] [place] [address] PCP - General Internal Medicine 12/25/13 Henrry Connor PharmD [address] [place] [address] Pharmacist Internal Medicine 05/04/23 documented as of this encounter
--- OUTSIDE RECORDS SUMMARY | 2025-09-14 16:41 | XMS_ITS | Encounter Summary ---
Author Organization [employer] Address [address] [place] [address] [place] [address] Care Team Providers Care Wall Attendant Name Role Phone Eli Roca MD Primary Care Provider +1- [phone] Henrry Connor PharmD Unavailable Unavail able Reason for Visit * Reason Comments Med Refill Encounter Details Date Type Department Care Team ([facility] Contact Info) Description 12/20/2022 Refill [facility] CHC MED & PEDS [address] [place] [address] Eli Roca MD [address] [place] [address] Type 2 diabetes mellitus with hyperglycemia, with long-term current use of insulin ([facility]/HCC) (Primary Dx) Social History Tobacco Use Types [...] on file documented as of this encounter Visit Diagnoses Diagnosis Type 2 diabetes mellitus with hyperglycemia, with long-term current use of insulin ([facility])- Primary documented in this encounter Care Teams Wall Attendant Relationship Specialty Start Date End Date Eli Roca MD [address] [place] [address] PCP - General Internal Medicine 12/25/13 Henrry Connor, PharmD [address] [place] [phone] Pharmacist Internal Medicine 05/04/23 documented as of this encounter
--- OUTSIDE RECORDS SUMMARY | 2025-09-14 16:41 | XMS_ITS | Encounter Summary ---
Author Organization [employer] Address [address] [place] [address] [place] [address] Care Team Providers Care Pie Maker Name Role Phone Eli Roca MD Primary Care Provider +1- [phone] Henrry Connor PharmD Unavailable Unavail able Reason for Visit * Reason Comments Med Refill Encounter Details Date Type Department Care Team ([facility] Contact Info) Description 12/09/2022 Refill [facility] CHC MED & PEDS [address] [place] [address] Eli Roca MD [address] [place] [address] Type 2 diabetes mellitus without complication, with long-term current use of insulin ([facility]/HCC) (Primary Dx) Social History Tobacco Use Types [...] complication, with long-term current use of insulin ([facility])- Primary documented in this encounter Care Teams Pie Maker Relationship Specialty Start Date End Date Eli Roca MD [address] [place] [address] PCP - General Internal Medicine 12/25/13 Henrry Connor, PharmD [address] [place] [address] Pharmacist Internal Medicine 05/04/23 documented as of this encounter
--- OUTSIDE RECORDS SUMMARY | 2025-09-14 16:41 | XMS_ITS | Encounter Summary ---
Author Organization [employer] Address [address] [place] [address] 7 [place] [address] Care Team Providers Care Internal Controls Manager Name Role Phone Eli Roca MD Primary Care Provider +1- [phone] Henrry Connor PharmD Unavailable Unavail able Encounter Details Date Type Department Care Team ([facility] st Contact Info) Description 11/02/2024 Orders Only [facility] CHC MED & PEDS [address] [place], [place] [phone] Eli Roca MD [address] [place] [address] Social History Tobacco Use Types Packs/Day Years [...] Result Component 7.7( 2:11 PM EDT) No Dellogono, Henrry, PharmD documented as of this encounter Visit Diagnoses Not on filedocumented in this encounter Additional Health Concerns Assessment Noted Time PHQ-9 Depression Total Score: 0 07/10/20 24 2:52 PM EDT documented as of this encounter Care Teams Internal Controls Manager Relationship Specialty Start Date End Date Eli Roca MD [address] [place], [place] [phone] PCP - General Internal Medicine 12/25/13 Henrry Connor, PharmD [address] [place] [address] Pharmacist Internal Medicine 05/04/23 documented as of this encounter
--- OUTSIDE RECORDS SUMMARY | 2025-09-14 16:41 | XMS_ITS | Encounter Summary ---
Author Organization [employer] Address [address] [place] [address] [address] [place] [address] Care Team Providers Care Clinical Laboratory Aide Name Role Phone Eli Roca MD Primary Care Provider +1- [phone] Henrry Connor PharmD Unavailable Unavail able Encounter Details Date Type Department Care Team ([facility] st Contact Info) Description 12/14/2022 Orders Only [facility] CHC MED & PEDS [address] [place] [address] Nohemy Frazier LPN Social History Tobacco Use [...] on filedocumented in this encounter Care Teams Clinical Laboratory Aide Relationship Specialty Start Date End Date Eli Roca MD [address] [place] [address] PCP - General Internal Medicine 12/25/13 Henrry Connor, PharmD [address] [place] [address] Pharmacist Internal Medicine 05/04/23 documented as of this encounter
--- OUTSIDE RECORDS SUMMARY | 2025-09-14 16:41 | XMS_ITS | Encounter Summary ---
Author Organization [employer] Address [address] [place] [address] 7 [place] [address] Care Team Providers Care Blending Machine Operator Name Role Phone Eli Roca MD Primary Care Provider +1- [phone] Henrry Connor PharmD Unavailable Unavail able Reason for Visit * Reason Comments Med Refill Encounter Details Date Type Department Care Team ([facility] Contact Info) Description 05/02/2025 Refill [facility] CHC MED & PEDS [address] [place] [address] Eli Roca MD [address] [place] [address] Essential hypertension Social History Tobacco Use Types Packs/Day Years [...] Blood Pressure 116/74(2024 1:10 PM EDT) No DelHenrry hancock, PharmD Hemoglobin A1c < 7 Result Component 7.7( 2:11 PM EDT) No DelHenrry hancock, PharmD documented as of this encounter Visit Diagnoses Diagnosis Essential hypertension Unspecified essential hypertension documented in this encounter Additional Health Concerns Assessment Noted Time PHQ-9 Depression Total Score: 0 02/05/20 25 3:48 PM EDT documented as of this encounter Care Teams Blending Machine Operator Relationship Specialty Start Date End Date Eli Roca MD [address] [place] [address] PCP - General Internal Medicine 12/25/13 DellogHenrry garcia, PharmD [address] [facility] [place] [address] Pharmacist Internal Medicine 05/04/23 documented as of this encounter
--- OUTSIDE RECORDS SUMMARY | 2025-09-14 16:41 | XMS_ITS | Clinical Summary ---
Author Organization [employer] Address [address] [place] [address] 7[address] [place] [address] Care Team Providers Care Bulk Sugar Handler Name Role Phone Eli Roca MD Primary Care Provider [phone] Henrry Connor PharmD Unavailable Unavail able Allergies No known active allergies Medications * This document contains information received from the source organization and may not represent a complete record from that organization. ibuprofen 400 MG tablet TAKE 1 TABLET BY MOUTH EVERY 6 HOURS NEEDED 09/14/20 22 Active Lancets (OneTouch Delica Plus [id number]) misc CHECK BLOOD SUGARS 4 TIMES A DAY DAY 10/24/20 22 Active FREESTYLE LITE test stripIndications :Type 2 diabetes mellitus without complication, with long-term current use of insulin (HCC) USE TO TEST 4 TIMES A DAY 100 strip 3 03/07/20 24 Active Alcohol Swabs (Alcohol Prep) 70 % padsIndications: Type 2 diabetes mellitus without complication, with long-term current use of insulin (HCC) Use to check blood sugar/apply fatemeh up to TID 100 each 12/19/19 25 Active atorvastatin (Lipitor) 10 MG tabletIndication s:Hypercholester olemia Take 1 tablet (10 mg) by mouth in the morning. 90 tablet 3 12/19/19 25 Active insulin pen needle (B-D ULTRAFINE III SHORT PEN) 31G X 8 mm miscIndications: Type 2 diabetes mellitus without complication, with long-term current use of insulin (HCC) Use as instructed 120 each 5 12/19/19 25 Active Continuous Glucose Marine Pipefitter (FreeStyle Fatemeh 2 [place]) deviceIndication s:Type 2 diabetes mellitus without complication, with long-term current use of insulin ([facility]) Use to check blood sugar at least every 8 hours 1 each 12/19/19 25 Active Continuous Glucose Sensor (FreeStyle Fatemeh 2 Sensor) miscIndications: Type 2 diabetes mellitus without complication, with long-term current use of insulin ([facility]) Use to check blood sugar at least every 8 hours 2 each 12/19/19 25 Active empagliflozin (Jardiance) 25 MGIndications:Ty pe 2 diabetes mellitus without complication, with long-term current use of insulin ([facility]) Take 1 tablet (25 mg) by mouth Once per day. 30 tablet 11 12/19/19 25 026 Active lisinopril 40 MG tablet Take 1 tablet (40 mg) by mouth Once per day. 90 tablet 3 12/19/19 25 Active Multiple Vitamin (One-Daily Multi-Vitamin) tablet Take 1 tablet by mouth 2 times daily. 180 tablet 3 12/19/19 25 Active glipiZIDE (Glucotrol) 5 MG tablet TAKE 0-1 TABLETS BY MOUTH BEFORE BREAKFAST AND 1 TO 3 TABLETS BEFORE SUPPER 450 tablet 1 07/03/20 25 Active metFORMIN (Glucophage) 1000 MG tablet TAKE 1 TABLET BY MOUTH TWICE A DAY 180 tablet 1 07/30/20 25 Active levothyroxine (Synthroid, Levoxyl) 50 MCG tablet TAKE 1 TABLET BY MOUTH EVERY DAY 90 tablet 1 07/31/20 25 Active amLODIPine (Norvasc) 10 MG tabletIndication s:Essential hypertension Take 1 tablet (10 mg) by mouth Once per day. 90 tablet 1 08/03/20 25 Active Dulaglutide (Trulicity) 0.75 MG/0.5ML solution auto-injectorInd ications:Type 2 diabetes mellitus without complication, with long-term current use of insulin ([facility]) Inject 0.75 mg under the skin 1 (one) time per week. 2 mL 2 08/03/20 25 Active insulin glargine (Lantus SoloStar) 100 UNIT/ML pen INJECT 62 UNITS UNDER THE SKIN AT BEDTIME. 15 mL 3 08/26/20 25 Active allopurinol (Zyloprim) 100 MG tablet TAKE 1 TABLET BY MOUTH EVERY DAY 90 tablet 1 09/10/20 25 Active nystatin (Nystop) 420965 UNIT/GM powderIndication s:Toe web intertrigo Apply topically 2 times daily. 60 g 1 09/14/20 25 026 Active allopurinol (Zyloprim) 100 MG tablet Take 1 tablet (100 mg) by mouth Once per day. 90 tablet 1 12/19/19 25 025 Discontinued insulin glargine (Lantus SoloStar) 100 UNIT/ML pen INJECT 62 UNITS UNDER THE SKIN AT BEDTIME. 15 mL 1 07/02/20 25 025 Discontinued Active Problems Problem Noted Date Diagnosed Date Mild anxiety 06/11/2025 Varicocele 03/18/2018 Acquired hypothyroidism 02/19/2012 Diabetes mellitus 02/19/2012 Essential hypertension 02/19/2012 Pure hypercholesterolemia 02/19/2012 Tinea pedis 02/19/2012 Encounters * This document contains information received from the source organization and may not represent a complete record from that organization. Date Type Department Care Team Description 09/14/2025 1:00 PM EDT Office Visit [facility] [address] [place] [address] Eli Roca MD Type 2 diabetes mellitus without complication, with long-term current use of insulin ([facility]) (Primary Dx); Essential hypertension; Pure hypercholesterolemia ; Acquired hypothyroidism; Screening for colon cancer; Toe web intertrigo 09/14/2025 Travel 09/11/2025 Telephone [facility] [address] [place] [address] Eli Witt MD Chart Prep 09/09/2025 Refill [facility] [address] [place] [address] Eli Witt MD 09/07/2025 Travel 08/26/2025 Refill [facility] [address] [place] [address] Eli Witt MD 08/03/2025 1:45 PM EDT Office Visit [facility] [address] [place] [address] Eli Witt MD Type 2 diabetes mellitus without complication, with long-term current use of insulin ([facility]/H[facility]) (Primary Dx); Essential hypertension; Chronic liver disease 08/03/2025 Travel 07/31/2025 Telephone [facility] [address] [place] [address] Eli Roca MD chart prep 07/31/2025 Refill [facility] [address] [place] [address] Eli Roca MD 07/30/2025 Refill [facility] [address] [place] [address] Eli Roca MD 07/27/2025 Travel 07/24/2025 Patient Outreach [facility] [address] [place] [address] Eli Roca MD Pre-visit Planning ([facility] screening completed on 02/04/25 ) 07/03/2025 Refill [facility] [address] [place] [address] Eli Roca MD 07/02/2025 Refill [facility] [address] [place] [address] Eli Roca MD 06/24/2025 Telephone [facility] [address] [place] [address] Eli Roca MD from Last 3 Months Immunizations Immunization Administration [...] Pressure 116/74 09/14/2025 1:10 PM EDT Pulse 89 08/03/2025 1:49 PM EDT Temperature 36.6 C (97.9 F) 05/08/2025 3:05 PM EDT Respiratory Rate 20 09/14/2025 1:10 PM EDT Oxygen Saturation 95% 09/14/2025 1:10 PM EDT Inhaled Oxygen Concentration - - Weight 108 kg (238 lb) 09/14/2025 1:10 PM EDT Height 176 cm (5' 9.29 ) 09/14/2025 1:10 PM EDT Body Mass Index 34.85 09/14/2025 1:10 PM EDT Plan of Treatment Health Maintenance Due Date Last Done Comments CT Colonography 1971 Colonoscopy 1971 Colorectal Cancer Screening 1971 FIT DNA/Cologuard 1971 FIT 1971 FOBT 1971 Sigmoidoscopy 1971 Hepatitis A Vaccines (1 of 2 - Risk 2-dose series) 1990 Zoster Vaccines (1 of 2) 2021 Eye Exam 03/06/2025 Diabetes: Urine Protein Screening 07/31/2025 09/14/2025, 07/31/2024, 03/03/2022, Additional history exists Lipid Panel 07/31/2025 09/14/2025, 09/0 03/2024, 05/04/2023, Additional history exists Diabetes: Hemoglobin A1C 11/02/2025 025, 05/08/2025, 10/14/2024, Additional history exists Alcohol/Substance Use Screening 02/04/2026 02/04/2025 Depression Screening 02/04/2026 02/04/2025, 02/05/20 Pneumococcal Vaccine: 50+ Years (2 of 2 - PCV) 02/04/2026 04/28/2010 Postponed from 04/28/2011 (Patient Refused) SDOH Screening 02/04/2026 02/04/2025 Disability Screening 05/07/2026 05/07/2025 Influenza Vaccine (#1) 2026 6, 10/14/2015, 08/11/2014, Additional history exists Postponed from 07/27/2025 (Patient Refused) COVID-19 Vaccine ( - season) 2026 Postponed from 07/27/2025 (Patient Refused) Diabetes: Foot Exam 09/14/2026 09/14/2025, 07/10/2024, 07/10/2024, Additional history exists Tobacco Screening 09/14/2026 09/14/2025 DTaP/Tdap/Td Vaccines (3 - Td or Tdap) 08/09/2027 08/09/2017, 08/11/2014 RSV Patients and Patients Aged 60 years or older (1 - 1-dose 75+ series) 2046 Hepatitis B Vaccines Completed 01/21/2014, 09/17/2013, 08/20/2013 Hepatitis C Screening Completed 05/15/2025, 024 HIB Vaccines Aged Out No longer eligi ble based on patient's age to complete this topic HIV Screening Discontinued HPV Vaccines Aged Out No longer eligi ble based on patient's age to complete this topic IPV Vaccines Aged Out No longer eligi ble based on patient's age to complete this topic Meningococcal B Vaccine Aged Out No l onger eligible based on patient's age to complete [...] Component 7.7( 2:11 PM EDT) No Henrry Connor PharmD Procedures Procedure Name Priority Date/Time Associated Diagnosis Comments ALBUMIN, RANDOM URINE W/CREATININE Routine 09/14/2025 1:40 PM EDT Type 2 diabetes mellitus without complication, with long-term current use of insulin ([facility]) TSH W/REFLEX TO FT4 Routine 09/14/2025 1:35 PM EDT Acquired hypothyroidism LIPID PANEL, STANDARD Routine 09/14/2025 1:35 PM EDT Chronic liver disease POCT GLUCOSE Routine 09/14/2025 1:32 PM EDT Type 2 diabetes mellitus without complication, with long-term current use of insulin ([facility]) POCT GLYCATED HEMOGLOBIN, TOTAL Routine 08/03/2025 2:11 PM EDT Type 2 diabetes mellitus without complication, with long-term current use of insulin (CMS/HCC) POCT GLUCOSE Routine 08/03/2025 2:10 PM EDT Type 2 diabetes mellitus without complication, with long-term current use of insulin (CMS/HCC) HEPATITIS PANEL, GENERAL Routine 05/15/2025 9:00 AM EDT Transaminitis from Last 3 Months or Most Recently Relevant to Health Maintenance Results * Albumin, Random Urine W/Creatinine (09/14/2025 1:40 PM EDT) Creatinine, Urine 106.03 mg/dL [facility] Microalbumin Urine 22.0 mg/L [facility] Microalbum Creatinine Ratio Ur 20.7 <30 ug/mg cr [facility] Comment:Albumin/Creatinine R atio Reference Ranges: Normal: < 30 ug/mg creatinine Microalbuminuria: 30 - 300 ug/mg creatinineClinical Albuminuria: > 300 ug/mg creatinine Urine (Urine, Random) 09/14/2025 1:40 PM EDT 09/14/2025 2:32 PM EDT us Eli Roca MD LAB URINE ORDERABLES Final Result Performing Organization Address City/[facility]/ZIP Co de Phone Number [facility] [address] [place] [address] [phone] * (ABNORMAL) TSH W/Reflex to FT4 (09/14/2025 1:35 PM EDT) TSH reflex Free T4 4.06(H) 0.32 - 4.0 uIU/mL [facility] Blood Venous blood specimen / Unknown 09/14/2025 1:35 PM EDT 09/14/2025 2:40 PM EDT us Eli Roca MD LAB BLOOD ORDERABLES Final Result Performing Organization Address City/[facility]/ZIP Co de Phone Number [facility] [address] [place] [address] [phone] * (ABNORMAL) Lipid Panel, Standard (09/14/2025 1:35 PM EDT) Triglycerides 293(H) <150 mg/dL [facility] Comment:Desirable Triglyceri de: less than 150 mg/dLBorderline High Triglyceride 150-199 mg/dLHigh Triglyceride: 200-499 mg/dLVery High Triglyceride: greater than or equal to 5OO mg/dL Cholesterol 141 <200 mg/dL [facility] Comment:Desirable Cholestero l: less than 200 mg/dLBorderline High Cholesterol: 200-239 mg/dLHigh Cholesterol: greater than 239 mg/dL LDL Cholesterol Calculated 50 <100 mg/dL [facility] Comment:Desirable LDL: less than 100 mg/dLNear Optimal/Above Optimal LDL: 110- 129 mg/dLBorderline High LDL: 130-159 mg/dLHigh LDL: 160-189 mg/dLVery High LDL: greater than or equal to 190 mg/dL HDL Cholesterol 33(L) >40 mg/dL [facility] Comment:Desirable HDL: great er than 40 mg/dL Note: This HDL assay may give artificially low results in patients with liver disease. Blood Venous blood specimen / Unknown 09/14/2025 1:35 PM EDT 09/14/2025 2:40 PM EDT us Eli Roca MD LAB BLOOD ORDERABLES Final Result [facility] [address] [place] [address] [phone] * POCT Glucose (09/14/2025 1:32 PM EDT) Only the most recent of2 resultswithin the time period is included. Glucose Blood, POC 110 60 - 200 mg/dL QC Media Lot # [id number] Lot# Expiration Date Blood Capillary blood specimen / Unknown 09/14/2025 1:32 PM EDT Eli Roca MD POINT OF CARE TEST ENTER/ED IT ORDERABLES Final Result * (ABNORMAL) POCT Hgb A1c (08/03/2025 2:11 PM EDT) Hemoglobin A1C 7.7(A) 4.0 - 5.7 % QC Media Lot # [id number] Lot# Expiration Date [id number] Blood 08/03/2025 2:11 PM EDT Eli Roca MD POINT OF CARE TEST ENTER/ED IT ORDERABLES Final Result * Hepatitis A,B,C Profile (05/15/2025 9:00 AM EDT) Hepatitis A IgM Nonreactive Nonreactive [facility] Comment:IgM antibodies to HUANG V not detected; does not exclude earlyacute or recovered HAV infection. ~Hepatitis B Surface Antibody GRAYZONE Nonreactive [facility] Comment:GRAYZONE: 8.00 mIU/m L TO 11.99 mIU/mLTHE IMMUNE STATUS OF THE INDIVIDUAL SHOULD BE FURTHERASSESSED BY CONSIDERING OTHER FACTORS, SUCH CLINICALSTATUS, FOLLOW-UP TESTING, ASSOCIATED RISK FACTORS, AND THEUSE OF ADDITIONAL DIAGNOSTIC INFORMATION. Hepatitis B Core Antibody Nonreactive Nonreactive [facility] Hepatitis C Antibody Nonreactive Nonreactive [facility] Comment:Antibodies to HCV no t detected; does not exclude early acuteHCV infection. Hepatitis B Surface Ag Negative Negative [facility] Blood Venous blood specimen / Unknown 05/15/2025 9:00 AM EDT 05/15/2025 2:27 PM EDT us Eli Roca MD LAB BLOOD ORDERABLES Final Result [facility] [address] [place] [phone] from Last 3 Months or Most Recently Relevant to Health Maintenance Insurance [facility] [address] [address] [facility] Care Teams Bulk Sugar Handler Relationship Specialty Start Date End Date Eli Roca MD [address] [facility] [place] [address] PCP - General Internal Medicine 12/25/13 Henrry Connor, PharmD [address] [facility] [place] Pharmacist Internal Medicine 05/04/23
--- OUTSIDE RECORDS SUMMARY | 2025-09-14 16:42 | XMS_ITS | Encounter Summary ---
Author Organization [employer] Address [address] [place] [address] 7 [place] [address] Care Team Providers Care Breast Puller Name Role Phone Eli Roca MD Primary Care Provider [phone] Henrry Connor PharmD Unavailable Unavail able Reason for Visit * Reason Comments Med Refill Encounter Details Date Type Department Care Team ([facility] Contact Info) Description 09/09/2025 Refill [facility] [address] [place] [address] Eli Roca MD [address] [place] [address] Social History Tobacco Use Types Packs/Day Years [...] documented as of this encounter Care Teams Breast Puller Relationship Specialty Start Date End Date Eli Roca MD [address] [place] [address] PCP - General Internal Medicine 12/25/13 Henrry Connor, PharmD 505 [place] [address] Pharmacist Internal Medicine 05/04/23 documented as of this encounter
--- OUTSIDE RECORDS SUMMARY | 2025-09-14 16:42 | XMS_ITS | Encounter Summary ---
Author Organization [employer] Address [address] [place] [address] [place] [address] Care Team Providers Care Infertility Nurse Name Role Phone Eli Roca MD Primary Care Provider [phone] Henrry Connor PharmD Unavailable Unavail able Reason for Referral * Imaging (Routine) - Closed Specialty Diagnoses / Procedures Referred By Juan stevens Referred To Contact Radiology Diagnoses Transaminitis Procedures US Abdomen Complete Eli Roca MD [address] [place] [address] Phone: tel: fax: [address] Phone: tel: fax: Referral ID Status Reason Start Date Expiration Date Visits Re quested Visits Authorized [id number] Closed 08/01/2024 08/01/2025 1 1 Encounter Details Date Type Department Care Team (Late st Contact Info) Description 08/01/2024 Orders Only [facility] [address] [place] [address] Eli Roca MD [address] [place] [address] Transaminitis (Primary Dx) Social History Tobacco Use [...] 2:11 PM EDT) No Henrry Connor PharmD documented as of this encounter Procedures Procedure Name Priority Date/Time Associated Diagnosis Comments HEPATITIS PANEL, GENERAL Routine 05/15/2025 9:00 AM EDT Transaminitis US ABDOMEN COMPLETE Routine 09/05/2024 9 :54 AM EDT Transaminitis documented in this encounter Results * Hepatitis A,B,C Profile (05/15/2025 9:00 AM EDT) Hepatitis A IgM Nonreactive Nonreactive [facility] Comment:IgM antibodies to HUANG V not detected; does not exclude earlyacute or recovered HAV infection. ~Hepatitis B Surface Antibody GRAYZONE Nonreactive [facility] Comment:GRAYZONE: 8.00 mIU/m L TO 11.99 mIU/mLTHE IMMUNE STATUS OF THE INDIVIDUAL SHOULD BE FURTHERASSESSED BY CONSIDERING OTHER FACTORS, SUCH CLINICALSTATUS, FOLLOW-UP TESTING, ASSOCIATED RISK FACTORS, AND THEUSE OF ADDITIONAL DIAGNOSTIC INFORMATION. Hepatitis B Core Antibody Nonreactive Nonreactive [facility] Hepatitis C Antibody Nonreactive Nonreactive [facility] Comment:Antibodies to HCV no t detected; does not exclude early acuteHCV infection. Hepatitis B Surface Ag Negative Negative [facility] Blood Venous blood specimen / Unknown 05/15/2025 9:00 AM EDT 05/15/2025 2:27 PM EDT Eli Roca MD LAB BLOOD ORDERABLES Final Result [facility] [address] [place] [phone] * US Abdomen Complete (09/05/2024 9:54 AM EDT) Anatomical Region Laterality Modality Abdomen Ultrasound 09/05/2024 9:54 AM EDT Narrative 10/31/2024 1:43 PM [facility] Adult Primary Care [facility] [place] [address] Ultrasound Report Signed Patient: Sb Hanson MR#: [id number] 8 : 1970 Acct:[id number] Age/Sex: 54 / M ADM Date: 09/05/24 [id number] Dr: Eli Roca MD Ordering Physician: Eli Roca MD Date of Service: 09/05/24 Procedure(s): US abdomen complete Accession Number(s): [id number] cc: Eli Roca MD EXAMINATION: US ABDOMEN [...] 10/31/24 1340 DD/ 0954 TD/TT: 09/05/24 1014 All Terrain Vehicle Racer: Procedure Note Donotuseinterpreter, Image - 10/31/2024 [facility] [address] [place] [address] [place] [address] Ultrasound Report Signed Patient: Sb HansonMR#: [id number] 8 : 1970Acct:[id number] Age/Sex: 54 / MADM Date: 09/05/24 Loc: [facility] Attending Dr: Eli Roca MD Ordering Physician: Eli Roca MD Date of Service: 09/05/24 Procedure(s): US abdomen complete Accession Number(s): [id number] cc: Eli Roca MD EXAMINATION: US ABDOMEN [...] by: Serge Cerrato MD 10/31/2024 01:40 PM [facility] Dictated By: Serge Cerrato MD Signed By: <Electronically signed by Serge Cerrato MD in OV> 10/31/24 1340 DD/ 0954 TD/TT: 09/05/24 1014 All Terrain Vehicle Racer: SS us Eli Roca MD IM US PROCEDURES Edited Re sult - Final documented in this encounter Visit Diagnoses Diagnosis Transaminitis- Primary Nonspecific elevation of levels of transaminase or lactic acid dehydrogenase (LDH) documented in this encounter Additional Health Concerns Assessment Noted Time PHQ-9 Depression Total Score: 0 07/10/20 24 2:52 PM EDT documented as of this encounter Care Teams Infertility Nurse Relationship Specialty Start Date End Date Eli Roca MD [address] [facility] [place] [address] PCP - General Internal Medicine 12/25/13 Henrry Connor PharmD [address] [facility] [place] [address] Pharmacist Internal Medicine 05/04/23 documented as of this encounter
--- OUTSIDE RECORDS SUMMARY | 2025-09-14 16:42 | XMS_ITS | Encounter Summary ---
Author Organization [employer] Address [address] [place] [address] 7 [place] [address] Care Team Providers Care Thermostat Repairer Name Role Phone Eli Roca MD Primary Care Provider [phone]- [phone] Henrry Connor PharmD Unavailable Unavail able Encounter Details Date Type Department Care Team ([facility] Contact Info) Description 05/08/2023 Orders Only [facility] [address] [place] [address] Eli Roca MD [address] [place] [address] Social History Tobacco Use Types Packs/Day Years [...] on filedocumented in this encounter Care Teams Thermostat Repairer Relationship Specialty Start Date End Date Eli Roca MD 505 [facility] [place] [address] PCP - General Internal Medicine 12/25/13 Henrry Connor PharmD 505 [facility] [address] Pharmacist Internal Medicine 05/04/23 documented as of this encounter
[2025-09-14 17:15] LABS: Free T4 (Free Thyroxine) 0.85 ng/dL (0.71-1.85)
== END 2025-09-14 13:35 | disposition home or self-care (01) ==
LOC: HO.CHCLDS 13:34
PROVIDERS: Visit Provider Internal Medicine
DX: E11.9 Type 2 diabetes mellitus without complications (principal); Z79.4 Long term (current) use of insulin; K76.9 Liver disease, unspecified; E03.9 Hypothyroidism, unspecified
CPT/HCPCS: 36415; 80061; 82043; 82570; 84439; 84443